=== PATIENT | male | born 1975 | race Two or more races ===

== ENCOUNTER → 2016-07-02 | Outpatient (CLI) | payer OTHER ==
--- NOTE | ~2016-07-02 | CT5 ---
[facility] A Service of [facility] RADIOLOGY TEXT RESULTS PATIENT: BARBIE RAMIREZ LOCATION: [facility] : 71 UNIT #: [id number] AGE: [address]: Aide Villanueva APRN SEX: M ORDER DR: [id number] [place], [place] [address] [id number] O MR#: [id number] Acc #: [id number] NAME: BARBIE RAMIREZ : 1975 SEX: M STUDY DATE/TIME: 07/02/2016 16:23 UNIT: [facility] ROOM: STUDY DESCRIPTION: CT Abdomen W Cont Attending Physician: Adele Villanueva Aprn Referring Physician: Adele Villanueva Aprn Ordering Physician: Adele Villanueva Aprn Primary Care Physician: Adele Villanueva Aprn MEDICAL IMAGING REPORT This report is preliminary unless electronic signature is present EXAM CT abdomen and pelvis with contrast INDICATIONS Mid abdominal pain for the past 2-3 weeks. PROCEDURE Contrast-enhanced CT of the abdomen and pelvis 100 mL of Isovue-[address] was performed using one of the following radiation dose reduction techniques; automatic exposure control, adjustment of mA and/or kVp based on body size, or interative reconstruction. COMPARISON 07/24/2014 FINDINGS Abdomen with contrast: Refer to the separately dictated chest CT for thoracic findings. Segment 4A lesion measures 2.6 cm and is unchanged. It is indeterminate but stability in keeping with a benign finding. The spleen, kidneys, adrenal gland, pancreas and gallbladder unremarkable. Bowel loops are nondilated. No abdominal adenopathy. Pelvis with contrast: No pelvic mass or fluid. No aggressive appearing bone lesion. IMPRESSION 1. No acute findings in the abdomen or pelvis. No appreciable change from 07/24/2014. [facility] A Service [facility] RADIOLOGY TEXT RESULTS PATIENT: BARBIE RAMIREZ [facility] : 71 UNIT #: [id number] AGE: [address]: Aide Villanueva APRN SEX: M ORDER DR: 2. Refer to the separately dictated chest CT for thoracic finding. 1. Dictated by... Cole Levy M.D. THIS IS AN ELECTRONICALLY VERIFIED REPORT Cole Levy M.D. at 07/05/2016 7:27 AM MARY/zulma TD: 07/03/2016 11:11 JOB #: [id number] MEDICAL IMAGING REPORT Page 1 of 1 COPY
--- NOTE | ~2016-07-02 | CT55 ---
[facility] A Service of [facility] RADIOLOGY TEXT RESULTS PATIENT: BARBIE RAMIREZ LOCATION: [facility] : 71 UNIT #: [id number] AGE: [address]: Aide Villanueva APRN SEX: M ORDER DR: [id number] [facility] [address] [place] [address] [place], [place] [address] [id number] O MR#: [id number] Acc #: [id number] NAME: BARBIE RAMIREZ : 1975 SEX: M STUDY DATE/TIME: 07/02/2016 16:23 UNIT: [facility] ROOM: STUDY DESCRIPTION: CT Chest W Con Attending Physician: Aide Villanueva Referring Physician: Aide Villanueva Ordering Physician: Adele Villanueva Aprn Primary Care Physician: Aide Villanueva MEDICAL IMAGING REPORT This report is preliminary unless electronic signature is present EXAM CT chest with contrast INDICATION Persistent cough for the past month. Pulmonary nodules. PROCEDURE Contrast-enhanced CT of the chest. 100 mL of Isovue-370. This CT examination was performed with one or more of the following radiation dose reduction techniques: automatic exposure control, adjustment of mA and/or kV according to patient size, and iterative reconstruction. COMPARISON Abdomen and pelvis CT from 07/24/2014. Patient has no previous dedicated chest imaging at this facility. FINDINGS Multiple bilateral cavitary pulmonary nodules greater on the right than the left. These nodules show surrounding micronodularity. Index nodule measures 3.2 cm in the right apex. Cavitary nodule left upper lobe measures 2.1 cm. No pleural fluid. No pneumothorax. There is a 1.5 cm left thyroid lobe nodule. No adenopathy. No aggressive appearing bone lesion. IMPRESSION 1. Multiple, large cavitary nodules and masses in both lungs, slightly greater on the right than left with surrounding micronodularity. This appearance can be seen in the setting of infectious or inflammatory change or malignancy. Correlate with any known relevant history. 2. Refer to the separately dictated CT of the abdomen for findings below the diaphragm. [facility] A Service [facility] RADIOLOGY TEXT RESULTS PATIENT: ABRBIE RAMIREZ LOCATION: [facility] : 71 UNIT #: [id number] AGE: [address]: Aide Villanueva APRN SEX: M ORDER DR: Dictated by... Cole Levy M.D. THIS IS AN ELECTRONICALLY VERIFIED REPORT Cole Levy M.D. at 07/03/2016 3:55 PM MARY/kirk TD: 07/03/2016 10:52 JOB #: [id number] MEDICAL IMAGING REPORT Page 1 of 1 COPY
[2016-07-02 18:00] LABS: POC - CREATININE 0.83 mg/dL (0.64-1.27); POC - GFR >60.0 mL/min (>60)
== END | disposition home or self-care (01) ==
LOC: CCAT 15:08
PROVIDERS: Nurse Practitioner Family
DX: R91.8 Other nonspecific abnormal finding of lung field (principal)
CPT/HCPCS: 71260; 74160; 82565; Q9967